=== PATIENT | female | born 1955 | race Hispanic/Latino ===

== ENCOUNTER 2020-12-23 06:11 | Observation (INO) | payer MEDICARE, OTHER ==
[2020-12-20 14:07] LABS: BASOPHILS % 0.3 % (0.0-1.0); EOSINOPHILS # (AUTO) 0.1 (0.0-0.4); EOSINOPHILS % 0.7 % (0.0-6.0); HEMATOCRIT 38.6 % (34.2-44.1); HEMOGLOBIN 12.6 g/dL (12.0-16.0); LYMPHOCYTES # (AUTO) 4.2 (1.0-3.2); LYMPHOCYTES % 30.9 % (18.0-39.1); MEAN CORPUSCULAR HEMOGLOBIN 30.8 pg (28-32); MEAN CORPUSCULAR HGB CONC 32.6 g/dL (31-35); MEAN CORPUSCULAR VOLUME 94.4 fL (81-99); MONOCYTES # (AUTO) 1.4 (0.2-0.8); MONOCYTES % 10.3 % (4.4-11.3); NEUTROPHILS # (AUTO) 7.6 (2.1-6.9); NEUTROPHILS % 56.5 % (38.7-80.0); PLATELET COUNT 319 x10e3/uL (140-360); RED BLOOD COUNT 4.09 x10e6/uL (3.6-5.1); RED CELL DISTRIBUTION WIDTH 13.6 % (11.7-14.4)
[~2020-12-23] VITALS: Ht 152.4 cm; Wt 83.5 kg
[~2020-12-23 06:11] MED LIST: FAMOTIDINE20 MG PO; FLUOXETINE HCL20 M1 PO; GABAPENTIN300 MG PO; LORATADINE10 MG PO; METOPROLOL TART50 MG PO; MOBIC7.5 MG PO; MONTELUKAST SOD10 MG PO; NITROGLYCERIN0.4 MG SL; OMEPRAZOLE40 MG PO; PREDNISONE20 MG PO; ZESTRIL10 MG PO
[2020-12-23] MEDS ORDERED: GABAPENTIN 300 MG CAP ONE (07:02)
[2020-12-23] MEDS ORDERED: DEXAMETHASONE SOD PHOS 10 MG/1 ML VIAL ONE (07:02)
[2020-12-23] MEDS ORDERED: CELECOXIB 200 MG CAP ONE (07:02)
[2020-12-23] MEDS ORDERED: CEFAZOLIN SOD 1 GM/NS 50ML 100 ML IV ONE (07:02)
[2020-12-23] MEDS ORDERED: VANCOMYCIN HCL 0 MG ONE (07:35)
[2020-12-23] MEDS ORDERED: TRANEXAMIC ACID 1,000 MG/10 ML ML ONE ×2 (07:35→07:42)
[2020-12-23] MEDS ORDERED: SODIUM CHLORIDE 0.9% 500ML 0 ML ONE (07:35)
[2020-12-23] MEDS ORDERED: VANCOMYCIN HCL 1,000 MG ONE (07:42)
[2020-12-23] MEDS ORDERED: SODIUM CHLORIDE 0.9% 500ML 500 ML ONE (07:42)
[2020-12-23] MEDS ORDERED: ROPIVACAINE 246.25 MG, EPINEPHRINE HCL 1:1000 1ML 0.5 MG, CLONIDINE HCL 0.08 MG, KETORO... INJ ONE ×5 (08:00)
[2020-12-23 08:04] LABS: ANION GAP 14.4 mmol/L (8-16); BLOOD UREA NITROGEN 20 mg/dL (7-26); BUN/CREATININE RATIO 31 (6-25); CALCIUM 8.5 mg/dL (8.4-10.2); CARBON DIOXIDE 26 mmol/L (22-29); CHLORIDE 102 mmol/L (98-107); CREATININE, SERUM 0.65 mg/dL (0.57-1.11); EST GLOMERULAR FILTRATION RATE > 60 ML/MIN (60-); GLUCOSE 107 mg/dL (74-118); POTASSIUM 4.4 mmol/L (3.5-5.1); SODIUM 138 mmol/L (136-145)
[2020-12-23 08:58] LABS: BASOPHILS % 0.3 % (0.0-1.0); EOSINOPHILS % 0.2 % (0.0-6.0); HEMOGLOBIN 12.4 g/dL (12.0-16.0); LYMPHOCYTES # (AUTO) 1.8 (1.0-3.2); LYMPHOCYTES % 15.3 % (18.0-39.1); MEAN CORPUSCULAR HEMOGLOBIN 30.5 pg (28-32); MEAN CORPUSCULAR HGB CONC 32.6 g/dL (31-35); MEAN CORPUSCULAR VOLUME 93.4 fL (81-99); MONOCYTES # (AUTO) 0.8 (0.2-0.8); MONOCYTES % 7.1 % (4.4-11.3); NEUTROPHILS # (AUTO) 8.7 (2.1-6.9); NEUTROPHILS % 76.1 % (38.7-80.0); PLATELET COUNT 297 x10e3/uL (140-360); RED BLOOD COUNT 4.07 x10e6/uL (3.6-5.1); RED CELL DISTRIBUTION WIDTH 13.5 % (11.7-14.4)
[2020-12-23] MEDS ORDERED: DIPHENHYDRAMINE HCL INJ 50 MG/ML VIAL IV PRN (10:45)
[2020-12-23] MEDS ORDERED: ZOLPIDEM TARTRATE 5 MG TAB PO PRN (10:45)
[2020-12-23] MEDS ORDERED: ACETAMINOPHEN 650 MG SUPP PR PRN (10:45)
[2020-12-23] MEDS ORDERED: ONDANSETRON HCL INJ 2MG/ML 2ML 2 MG/ML VIAL IV PRN (10:45)
[2020-12-23] MEDS ORDERED: HYDROCODONE/APAP 5MG-325MG TAB PO PRN (10:45)
[2020-12-23] MEDS ORDERED: DOCUSATE SODIUM 100 MG CAP PO PRN (10:45)
[2020-12-23] MEDS ORDERED: LIDOCAINE 2%/ EPINEPHRINE 20ML MDV ONE (11:48)
[2020-12-23] MEDS ORDERED: ROPIVACAINE 0.5% 5 MG/ML 30 ML SDV ONE (11:48)
[2020-12-23] MEDS ORDERED: MIDAZOLAM HCL 2 MG/2 ML VIAL ONE (12:05)
[2020-12-23] MEDS ORDERED: FENTANYL CITRATE/PF 100MCG/2 ML INJ ONE (12:05)
[2020-12-23 12:45] VITALS: BP 103/58
[2020-12-23] MEDS: SODIUM CHLORIDE 0.9% 1000ML 1,000 ML IV SCH ×2 (13:00→22:17)
[2020-12-23 13:50] VITALS: BP 109/61
[2020-12-23] MEDS ORDERED: LIDOCAINE HCL 2% LOCAL INJ 5 ML SDV VIAL INJ ONE (13:59)
[2020-12-23] MEDS ORDERED: ATROPINE SULFATE 1 MG/ML VIAL ONE (13:59)
[2020-12-23] MEDS ORDERED: SEVOFLURANE INHAL SOLN 250 ML PEN BTL ONE (13:59)
[2020-12-23] MEDS ORDERED: ONDANSETRON HCL INJ 2MG/ML 2ML 2 MG/ML VIAL ONE (13:59)
[2020-12-23] MEDS ORDERED: PROPOFOL IV EMULSION 10 MG/ML 20 ML VIAL ONE (13:59)
[2020-12-23] MEDS ORDERED: KETOROLAC TROMETHAMINE 30 MG/ML VIAL ONE (13:59)
[2020-12-23 15:53] VITALS: BP 121/74
[2020-12-23] MEDS: CELECOXIB 200 MG CAP PO SCH (17:00)
[2020-12-23] MEDS: ASPIRIN 325 MG TAB PO SCH (17:00)
[2020-12-23] MEDS: CEFAZOLIN SOD 1 GM/NS 50ML 50 ML IV SCH (17:00)
[2020-12-23] MEDS: METOPROLOL TARTRATE 50 MG TAB PO SCH (17:00)
[2020-12-23 20:19] VITALS: BP 97/46
[2020-12-23 20:33] VITALS: BP 97/46
[2020-12-23] MEDS: CALCIUM CARBONATE 500 MG CHEWABLE TABS PO PRN (22:22)
[2020-12-24 00:08] VITALS: BP 97/48
[2020-12-24] MEDS: CEFAZOLIN SOD 1 GM/NS 50ML 50 ML IV SCH ×2 (00:26→08:36)
[2020-12-24] MEDS: HYDROCODONE/APAP 7.5MG-325MG 1 EA TAB PO PRN ×4 (00:26→12:44)
[2020-12-24 04:00] VITALS: BP 133/59
[2020-12-24 05:44] LABS: HEMOGLOBIN 10.3 g/dL (12.0-16.0)
[2020-12-24 07:10] VITALS: BP 122/54
[2020-12-24 07:56] VITALS: BP 122/54
[2020-12-24] MEDS: ASPIRIN 325 MG TAB PO SCH ×2 (08:33→16:22)
[2020-12-24] MEDS: CELECOXIB 200 MG CAP PO SCH ×2 (08:35→16:22)
[2020-12-24] MEDS: SODIUM CHLORIDE 0.9% 1000ML 1,000 ML IV SCH (08:47)
[2020-12-24] MEDS ORDERED: LISINOPRIL 10 MG TAB PO SCH (09:00)
[2020-12-24] MEDS ORDERED: FLUOXETINE HCL 20 MG CAP PO SCH (09:00)
[2020-12-24] MEDS ORDERED: PANTOPRAZOLE SOD 40 MG TABEC PO SCH (09:00)
[2020-12-24] MEDS ORDERED: FAMOTIDINE 20 MG TAB PO SCH (09:00)
[2020-12-24] MEDS ORDERED: LORATADINE 10 MG TAB PO SCH (09:00)
[2020-12-24] MEDS ORDERED: PREDNISONE 20 MG TAB PO SCH (09:00)
[2020-12-24] MEDS ORDERED: MELOXICAM 7.5 MG TAB PO SCH (09:00)
[2020-12-24] MEDS ORDERED: MONTELUKAST SODIUM 10 MG TAB PO SCH (09:00)
[2020-12-24] MEDS ORDERED: GABAPENTIN 300 MG CAP PO SCH (09:00)
[2020-12-24] MEDS: METOPROLOL TARTRATE 50 MG TAB PO SCH ×2 (09:44→16:23)
[2020-12-24] MEDS: KETOROLAC TROMETHAMINE 30 MG/ML VIAL IV PRN ×2 (10:18→16:24)
[2020-12-24] MEDS ORDERED: ACETAMINOPHEN 1000 MG/100 ML IV PRN (10:45)
[2020-12-24] MEDS ORDERED: ONDANSETRON HCL 4 MG ORAL DISINTEGRATING TAB PO PRN (10:45)
[2020-12-24 11:20] VITALS: BP 115/53
[2020-12-24] MEDS: CALCIUM CARBONATE 500 MG CHEWABLE TABS PO PRN (11:20)
[2020-12-24 15:34] VITALS: BP 118/54
== END 2020-12-24 16:40 | disposition home or self-care (01) ==
LOC: OR 06:11 → EDBD 08:30 → PACU V 10:43 → MED/SURG 12:46
PROVIDERS: ADMIT Specialist; ATTEND Specialist
DX: M17.0 Bilateral primary osteoarthritis of knee (principal); I10 Essential (primary) hypertension; K29.70 Gastritis, unspecified, without bleeding; Z01.812 Encounter for preprocedural laboratory examination; Z20.822 Contact with and (suspected) exposure to COVID-19; K21.9 Gastro-esophageal reflux disease without esophagitis; D64.9 Anemia, unspecified
CPT/HCPCS: 27447; 36415 ×3; 71046; 73560; 80048; 85014; 85018; 85025 ×2; 86850; 86900; 86920; 93005; 97116 ×2; 97161; 97530; C1713 ×4; G0378 ×2; J0171; J0461; J0690 ×2; J1100; J1885 ×2; J2001 ×2; J2250; J2405; J2704; J2795; J3010; J3370; J7030; J7040; J7512; S0164; U0002

== ENCOUNTER 2021-05-06 05:26 | Observation (INO) | payer MEDICARE, OTHER ==
[~2021-05-06] VITALS: Ht 149.9 cm; Wt 90.7 kg
[~2021-05-06 05:26] MED LIST changes: +CITALOPRAM HBR20 MG PO; +PROTONIX20 MG PO
[2021-05-06] MEDS ORDERED: CELECOXIB 200 MG CAP ONE (06:16)
[2021-05-06] MEDS ORDERED: GABAPENTIN 300 MG CAP ONE (06:16)
[2021-05-06] MEDS ORDERED: DEXAMETHASONE SOD PHOS 10 MG/1 ML VIAL ONE (06:16)
[2021-05-06] MEDS ORDERED: SODIUM CHLORIDE 0.9% 50ML 100 ML ONE (06:17)
[2021-05-06] MEDS ORDERED: SODIUM CHLORIDE 0.9% 500ML 500 ML ONE (06:31)
[2021-05-06] MEDS ORDERED: Vancomycin IV 1,000 MG ONE (06:31)
[2021-05-06] MEDS ORDERED: TRANEXAMIC ACID 1,000 MG/10 ML ML ONE (06:31)
[2021-05-06] MEDS ORDERED: ROPIVACAINE 246.25 MG, EPINEPHRINE HCL 1:1000 1ML 0.5 MG, CLONIDINE HCL 0.08 MG, KETORO... INJ ONE ×5 (08:00)
[2021-05-06] MEDS ORDERED: ONDANSETRON HCL INJ 2MG/ML 2ML 2 MG/ML VIAL IV PRN (09:00)
[2021-05-06] MEDS ORDERED: HYDROCODONE/APAP 5MG-325MG TAB PO PRN (09:00)
[2021-05-06] MEDS ORDERED: DIPHENHYDRAMINE HCL INJ 50 MG/ML VIAL IV PRN (09:00)
[2021-05-06] MEDS: ASPIRIN 325 MG TAB PO SCH ×2 (09:00→17:07)
[2021-05-06] MEDS ORDERED: DOCUSATE SODIUM 100 MG CAP PO PRN (09:00)
[2021-05-06] MEDS ORDERED: ACETAMINOPHEN 650 MG SUPP PR PRN (09:00)
[2021-05-06] MEDS ORDERED: HYDROCODONE/APAP 7.5MG-325MG 1 EA TAB PO PRN (09:00)
[2021-05-06] MEDS ORDERED: SODIUM CHLORIDE 0.9% 1000ML 1,000 ML IV SCH (09:00)
[2021-05-06] MEDS: CELECOXIB 100 MG CAP PO SCH ×2 (09:00→17:08)
[2021-05-06] MEDS ORDERED: FENTANYL CITRATE/PF 100MCG/2 ML INJ ONE ×2 (09:32→12:30)
[2021-05-06] MEDS ORDERED: HYDROMORPHONE 1MG/1ML INJ ONE (10:03)
[2021-05-06] MEDS ORDERED: SEVOFLURANE INHAL SOLN 250 ML PEN BTL ONE (11:58)
[2021-05-06] MEDS ORDERED: LIDOCAINE HCL 2% LOCAL INJ 5 ML SDV VIAL INJ ONE (11:58)
[2021-05-06] MEDS ORDERED: PROPOFOL IV EMULSION 10 MG/ML 20 ML VIAL ONE (11:58)
[2021-05-06] MEDS ORDERED: LIDOCAINE HCL 2% JELLY 5 ML TUBE ONE (11:58)
[2021-05-06] MEDS ORDERED: POVIDONE IODINE 0.05% 0.05 % ML PO ONE (11:58)
[2021-05-06] MEDS ORDERED: EPHEDRINE SULFATE INJ 50 MG/ML VIAL ONE (11:58)
[2021-05-06] MEDS ORDERED: ONDANSETRON HCL INJ 2MG/ML 2ML 2 MG/ML VIAL ONE (11:58)
[2021-05-06] MEDS ORDERED: GLYCOPYRROLATE INJ 0.2 MG/ML VIAL ONE (11:58)
[2021-05-06] MEDS ORDERED: MIDAZOLAM HCL 2 MG/2 ML VIAL ONE (12:30)
[2021-05-06 13:23] VITALS: BP 128/63
[2021-05-06 13:26] VITALS: BP 128/63
[2021-05-06] MEDS ORDERED: LIDOCAINE 2%/ EPINEPHRINE 20ML MDV ONE (13:27)
[2021-05-06] MEDS ORDERED: ROPIVACAINE 0.5% 5 MG/ML 30 ML SDV ONE (13:27)
[2021-05-06 13:30] VITALS: BP 128/63
[2021-05-06] MEDS: Cefazolin 1 GM in SODIUM CHLORIDE 0.9% 50ML 50 ML IV SCH ×2 (15:21→21:50)
[2021-05-06] MEDS: KETOROLAC TROMETHAMINE 30 MG/ML VIAL IV PRN (17:17)
[2021-05-06] MEDS ORDERED: DIPHENHYDRAMINE HCL 25 MG CAP PO PRN (18:45)
[2021-05-06 20:00] VITALS: BP 102/56
[2021-05-06 20:22] VITALS: BP 102/56
[2021-05-06] MEDS ORDERED: ZOLPIDEM TARTRATE 5 MG TAB PO PRN (21:00)
[2021-05-07] VITALS: BP 116/55
[2021-05-07] MEDS: KETOROLAC TROMETHAMINE 30 MG/ML VIAL IV PRN ×2 (02:05→11:46)
[2021-05-07 04:00] VITALS: BP 121/61
[2021-05-07 05:58] LABS: HEMATOCRIT 28.9 % (34.2-44.1); HEMOGLOBIN 9.3 g/dL (12.0-16.0)
[2021-05-07] MEDS: Cefazolin 1 GM in SODIUM CHLORIDE 0.9% 50ML 50 ML IV SCH (06:11)
[2021-05-07] MEDS ORDERED: PANTOPRAZOLE SOD 40 MG TABEC PO SCH (07:30)
[2021-05-07 08:05] VITALS: BP 122/54
[2021-05-07 08:15] VITALS: BP 122/54
[2021-05-07] MEDS: CELECOXIB 100 MG CAP PO SCH (08:44)
[2021-05-07] MEDS: ASPIRIN 325 MG TAB PO SCH (08:44)
[2021-05-07] MEDS ORDERED: CITALOPRAM HYDROBROMIDE 20 MG TAB PO SCH (09:00)
[2021-05-07] MEDS ORDERED: ACETAMINOPHEN 1000 MG/100 ML IV PRN (09:00)
[2021-05-07] MEDS ORDERED: GABAPENTIN 300 MG CAP PO SCH (09:00)
[2021-05-07] MEDS ORDERED: LORATADINE 10 MG TAB PO SCH (09:00)
[2021-05-07] MEDS ORDERED: FAMOTIDINE 20 MG TAB PO SCH (09:00)
[2021-05-07] MEDS ORDERED: ONDANSETRON HCL 4 MG ORAL DISINTEGRATING TAB PO PRN (09:15)
[2021-05-07 11:44] VITALS: BP 119/62
[2021-05-07] MEDS ORDERED: CELECOXIB 200 MG CAP PO SCH (17:00)
[2021-05-07] MEDS ORDERED: MONTELUKAST SODIUM 10 MG TAB PO SCH (21:00)
== END 2021-05-07 13:25 | disposition home health service (06) ==
LOC: OR 05:26 → PACU V 08:50 → MED/SURG 13:09
PROVIDERS: ADMIT Specialist; ATTEND Specialist
DX: M17.11 Unilateral primary osteoarthritis, right knee (principal); Z90.49 Acquired absence of other specified parts of digestive tract; Z96.652 Presence of left artificial knee joint; E78.5 Hyperlipidemia, unspecified; I10 Essential (primary) hypertension; Z01.812 Encounter for preprocedural laboratory examination; Z20.822 Contact with and (suspected) exposure to COVID-19; K21.9 Gastro-esophageal reflux disease without esophagitis; F32.9 Major depressive disorder, single episode, unspecified; D64.9 Anemia, unspecified; F41.9 Anxiety disorder, unspecified; Z68.41 Body mass index [BMI] 40.0-44.9, adult
CPT/HCPCS: 27447; 36415; 73560; 85014; 85018; 86850; 86900; 86920; 97116 ×2; 97161; 97530; C1713; G0378 ×2; J0171; J0690 ×2; J1100; J1170; J1885 ×2; J2001 ×3; J2250; J2405; J2704; J2795; J3010; J3370; J7030; J7040; S0164; U0002

== ENCOUNTER 2025-08-01 10:17 | Emergency (ER) | payer MEDICARE, OTHER ==
[~2025-08-01] VITALS: Ht 149.9 cm; Wt 104.3 kg
[~2025-08-01 10:17] MED LIST changes: +ACETAMINOPHEN-1 EAC4 PO; +CEFPODOXIME PR200 MG PO; +CEPHALEXIN500 MG PO; +FIORICET 50-301 EACH PO; +LASIX20 MG PO; +LEVOTHYROXINE50 MCG PO; +SIMVASTATIN40 MG PO; +TYLENOL325 MG PO; +ULTRAM 50MG50 MG PO
[2025-08-01 11:38] LABS: EST GLOMERULAR FILTRATION RATE 83 ML/MIN (>=60)
[2025-08-01 12:47] LABS: BASOPHILS % 0.3 % (0.0-1.0); EOSINOPHILS % 3.3 % (0.0-6.0); LYMPHOCYTES % 29.6 % (18.0-39.1); MONOCYTES % 13.5 % (4.4-11.3); NEUTROPHILS % 52.9 % (38.7-80.0); RED CELL DISTRIBUTION WIDTH 12.4 % (11.7-14.4)
[2025-08-01 13:40] VITALS: PULSE 58; RESP 16; TEMP 98.4; O2SAT 97
== END 2025-08-01 13:51 | disposition home or self-care (01) ==
LOC: ER 10:20
DX: R07.89 Other chest pain (principal); R53.83 Other fatigue; I10 Essential (primary) hypertension; E78.5 Hyperlipidemia, unspecified; K21.9 Gastro-esophageal reflux disease without esophagitis; Z86.19 Personal history of other infectious and parasitic diseases
CPT/HCPCS: 36415; 71045; 80053; 83690; 84484; 85025; 93005; 99284